=== PATIENT | male | born 1985 | race Caucasian/White ===

== ENCOUNTER → 2018-04-12 | Outpatient (CLI) | payer BC ==
--- NOTE | 2018-04-12 16:51 | Diagnostic Imaging Report ---
INDICATION: Hernia. FINDINGS: The right testicle measures 4.7 x 1.7 x 3.1 cm and the left testicle measures 4.4 x 1.5 x 2.5 cm. Both testes show homogeneous echotexture. No discrete testicular mass is seen. There is blood flow to both testes. The epididymides appear unremarkable. No hydrocele or varicocele is identified. Inguinal regions are evaluated bilaterally. No definite hernia is detected. IMPRESSION: Unremarkable scrotal ultrasound. Dictated by: Dictated on workstation # [id number]
== END ==
LOC: RAD 15:13
PROVIDERS: ATTEND Nurse Practitioner Family
DX: K46.9 Unspecified abdominal hernia without obstruction or gangrene (principal)
CPT/HCPCS: 76870

== ENCOUNTER 2021-04-21 15:02 | Outpatient (CLI) | payer BC | END 2021-04-21 15:35 | LOC: SLEEP 15:02 | PROVIDERS: ATTEND Nurse Practitioner Family | DX: G47.10 Hypersomnia, unspecified (principal) | CPT/HCPCS: G0399 ==